=== PATIENT | female | born 1995 ===

== ENCOUNTER 2021-04-04 13:04 | Emergency (ER) | payer BC ==
[~2021-04-04] VITALS: Ht 170.2 cm; Wt 95.3 kg
[2021-04-04 14:13] VITALS: BP_SYST 147; BP_SYST 148; BP_DIAS 84; BP_DIAS 95
[2021-04-04 14:41] VITALS: BP 147/96
[2021-04-04 15:03] LABS: BILIRUBIN,URINE NEGATIVE (NEGATIVE); UROBILINOGEN,URINE 0.2 E.U./dL (0.2)
--- NOTE | 2021-04-04 15:31 | ER.PDOC ---
General Chief Complaint: Cough/Congestion Stated Complaint: BACK PAIN, COUGH Time seen by MD: 15:28 Source: patient Exam Limitations: no limitations History of Present Illness Initial Comments Cough, body aches and lower back ache today. No fall or injury. Timing/Duration: gradual Severity: moderate Associated Symptoms: cough Allergies: Coded Allergies: cefaclor (Verified Allergy, Unknown, UNK, 04/04/21) levofloxacin (Verified Allergy, Unknown, UNK, 04/04/21) Constitutional: no symptoms reported EENTM: no symptoms reported Respiratory: see HPI Cardiovascular: no symptoms reported Gastrointestinal: no symptoms reported All Other Systems: Reviewed and Negative Past Medical History Medical History: no pertinent history Surgical History: cholecystectomy, knee Family History Significant Family History: no pertinent family hx Social History Smoking: non-smoker Alcohol Use: occassionally Drug Use: none Physical Exam General Appearance: alert, no distress Eye: eyes nml inspection Nose: nose nml Throat: pharynx nml, airway nml Neck: nml inspection, supple Respiratory: no resp.distress, breath sounds nml Abdomen: non-tender, no organomegaly CVS: reg rate & rhythm, heart sounds nml Skin: color nml, no rash, warm/dry Extremities: non-tender, nml ROM, no pedal edema NEURO/PSYCH: oriented x 3, CN's nml as tested, motor nml, sensation nml, mood/affect nml Results/Orders Results/Orders Orders - FRANCINE SANTOS MD Urinalysis (04/04/21 14:35) Hcg Urine (04/04/21 14:35) Covid19 Antigen Dyan Mary (04/04/21 14:35) Strep Screen (04/04/21 14:35) Vital Signs Date Time Temp Pulse Resp B/P (MAP) Pulse Ox O2 Delivery O2 Flow Rate FiO2 04/04/21 14:41 98.8 65 16 147/96 (113) 98 Room Air 04/04/21 14:13 98.8 80 20 98 04/04/21 14:13 98.8 65 16 Laboratory Tests Test 04/04/21 14:25 Urine Collection Type UNKNOWN Urine Color COLORLESS Urine Appearance CLEAR Urine Bilirubin NEGATIVE (NEGATIVE) Urine Ketones NEGATIVE (NEGATIVE) Urine Specific [place] <=1.005 (1.005-1.030) Urine pH 5.5 (4.5-8.0) Urine Protein NEGATIVE (NEGATIVE) Urine Urobilinogen 0.2 E.U./dL (0.2) Urine Nitrate NEGATIVE (NEGATIVE) Urine Leukocyte Esterase NEGATIVE (NEGATIVE) Urine Glucose (Auto)(UA) NEGATIVE (NEGATIVE) Urine Blood NEGATIVE (NEGATIVE) Urine HCG, Qualitative NEGATIVE (NEGATIVE) SARS-CoV-2 Antigen (Rapid) POSITIVE (NEGATIVE) *A ER DEPART Departure Time of Disposition: 15:29 Disposition: 01 HOME / SELF CARE / HOMELESS Impression: Primary Impression: COVID-19 virus infection Condition: Stable Referrals: PCP,UNKNOWN (PCP) PRIMARY CARE PROVIDER Additional Instructions: Vit C, D and zinc [id number] as directed Tylenol or Motrin Self quarantine at home for 14 days Follow-up with your PCP in 1 week Return to ED if worsening symptoms or concerns Duration or Time Spent with Pa: 10 min FRANCINE SANTOS MD Apr 04, 2021 15:31
== END 2021-04-04 16:08 | disposition home or self-care (01) ==
LOC: ER 13:19
DX: U07.1 COVID-19 (principal); Z88.1 Allergy status to other antibiotic agents; Z90.49 Acquired absence of other specified parts of digestive tract
CPT/HCPCS: 81003; 81025; 87426; 99283